=== PATIENT | male | born 1985 | race Caucasian/White ===

== ENCOUNTER 2017-03-23 01:13 | Emergency (ER) | payer BC ==
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
== END 2017-03-23 03:18 | disposition home or self-care (01) ==
LOC: JP.ED 01:13
DX: S02.32XA Fracture of orbital floor, left side, initial encounter for closed fracture (principal); Y04.0XXA Assault by unarmed brawl or fight, initial encounter
CPT/HCPCS: 70450; 70486; 99284-25